=== PATIENT | female | born 1950 | race Caucasian/White ===

== ENCOUNTER 2021-03-27 16:01 | Emergency (ER) | payer OTHER ==
[~2021-03-27] VITALS: Ht 154.9 cm; Wt 70.3 kg
[2021-03-27 17:30] VITALS: BP 122/67
== END 2021-03-27 17:30 | disposition home or self-care (01) ==
LOC: ER 16:01
DX: R09.89 Other specified symptoms and signs involving the circulatory and respiratory systems (principal); Z88.8 Allergy status to other drugs, medicaments and biological substances